=== PATIENT | female | born 2000 | race Caucasian/White ===

== ENCOUNTER 2021-06-30 17:56 | Emergency (ER) | payer OTHER, SELFPAY ==
[2021-06-30 18:52] LABS: Urine Blood Negative (Negative); Urine Glucose 2+ (Negative); Urine Protein Negative (Negative); Urine Specific Gravity >=1.030 (1.005-1.030)
[2021-06-30] MEDS ORDERED: NA CHLORIDE 0.9% 1,000 ML ONE (19:19)
[2021-06-30 19:28] LABS: Absolute Lymphocytes (CBC) 5.5 K/uL (0.7-4.9); Basophils % 0.8 % (0-1.3); Hematocrit 43.6 % (36.0-45.0); MPV 9.5 fL (7.6-11.3); RBC Red Blood Cell Count 4.76 M/uL (3.86-4.86)
--- NOTE | 2021-06-30 19:50 | RAD REPORT ---
EXAM DESCRIPTION: CTAbdomen Pelvis W Contrast - 06/30/2021 7:16 pm CLINICAL HISTORY: Abdominal pain. ABD PAIN COMPARISON: No comparisons TECHNIQUE: Biphasic CT imaging of the abdomen and pelvis was performed with 100 ml non-ionic IV cont rast. All CT scans are performed using dose optimization technique as appropriate and may include automated exposure control or mA/KV adjustment according to patient size. FINDINGS: The lung bases are clear. The liver, spleen, pancreas, adrenal glands and kidneys are within normal limits. No bowel obstruction, free air, free fluid or abscess. The appendix is normal. No evidence of signi ficant lymphadenopathy. No suspicious bony findings. IMPRESSION: No acute intra-abdominal or pelvic finding.
[2021-06-30 19:55] LABS: Urine Specific Gravity/Preg >1.030 (1.005-1.030)
[2021-06-30 20:22] LABS: Bilirubin Direct 0.2 mg/dL (0-0.2); Bilirubin Total 0.6 mg/dL (0.2-1.0); Protein, Total 7.7 g/dL (6.4-8.2)
[2021-06-30 20:24] LABS: Potassium 2.7 mmol/L (3.5-5.1)
--- NOTE | 2021-06-30 20:47 | RAD REPORT ---
EXAM DESCRIPTION: US - Pelvis Complete - 06/30/2021 8:29 pm CLINICAL HISTORY: right sided pain Pelvic pain. COMPARISON: PELVIC COMPLETE dated 07/25/2014 FINDINGS: The uterus is normal in size, shape and echotexture. The uterus measures 8.4 x 4.5 x 3.1 c m. The endometrial stripe measures 6 mm, normal. Both ovaries are normal in size, shape and echotexture. The right ovary measures 4.7 x 2.7 x 2.3 cm. The left ovary measures 3.4 x 2.6 x 2.2 cm. No ovarian or parovarian lesions. No adnexal masses. Normal Doppler blood flow was demonstrated to both ovaries. No significant pelvic ascites. IMPRESSION: Unremarkable study.
--- NOTE | 2021-06-30 21:44 | EDPHYS ---
Physician Documentation [facility] Name: Hui Briceno Age: 21 yrs Sex: Female : 2000 Arrival Date: 06/30/2021 Time: 17:58 Bed 14 Private MD: MARY ELLEN Physician Keith Infante HPI: 06/30 20:11 This 21 yrs old Female presents to ER via Ambulatory with complaints of jmm Abdominal Pain. 20:11 The patient presents with abdominal pain. Onset: The symptoms/episode began/occurred jmm today. The symptoms do not radiate. Associated signs and symptoms: Pertinent negatives: fever, vomiting. The symptoms are described as achy. Modifying factors: The symptoms are alleviated by remaining still, the symptoms are aggravated by movement. The patient has not experienced similar symptoms in the past. Historical: - PMHx: 18:17 Diabetes - IDDM; ll1 - PSHx: 18:17 None; ll1 - Immunization history:: Client reports having NOT received the Covid vaccine. - Social history:: Smoking status: Patient denies any tobacco usage or history of. ROS: 20:11 Constitutional: Negative for fever, chills, and weight loss, Cardiovascular: Negative jmm for chest pain, palpitations, and edema, Respiratory: Negative for shortness of breath, cough, wheezing, and pleuritic chest pain. 20:11 Abdomen/GI: Positive for abdominal pain. 20:11 All other systems are negative. Exam: 20:11 Constitutional: This is a well developed, well nourished patient who is awake, alert, jmm and in no acute distress. Head/Face: atraumatic. Eyes: EOMI, no conjunctival erythema appreciated ENT: Moist Mucus Membranes Neck: Trachea midline, Supple Chest/axilla: Normal chest wall appearance and motion. Cardiovascular: Regular rate and rhythm. No edema appreciated Respiratory: Normal respirations, no respiratory distress appreciated 20:11 Back: Normal ROM Skin: General appearance color normal MS/ Extremity: Moves all extremities, no obvious deformities appreciated, no edema noted to the lower extremities Neuro: Awake and alert, normal gait Psych: Behavior is normal, Mood is normal, Patient is cooperative and pleasant 20:11 Abdomen/GI: Inspection: abdomen appears normal, Bowel sounds: normal, Palpation: soft, mild abdominal tenderness, in the right lower quadrant. Vital Signs: 18:17 BP 124 / 94; Pulse 93; Resp 17; Temp 98.7; Pulse Ox 100% ; Weight 64.86 kg; Height 5 ll1 ft. 5 in. (165.10 cm); Pain 8/10; 20:00 BP 111 / 74; Pulse 73; Resp 16; Temp 97.2; Pulse Ox 100% ; Pain 4/10; dc2 21:00 BP 110 / 81; Pulse 62; Resp 18; Pulse Ox 100% ; Pain 4/10; dc2 21:45 BP 110 / 85; Pulse 79; Resp 16; Temp 98.0; Pulse Ox 99% ; Pain 2/10; dc2 18:17 Body Mass Index 23.80 (64.86 kg, 165.10 cm) ll1 MDM: 18:25 Patient medically screened. musa 21:42 Data reviewed: vital signs, nurses notes. Counseling: I had a detailed discussion with shanta the patient and/or guardian regarding: the historical points, exam findings, and any diagnostic results supporting the discharge/admit diagnosis, lab results, radiology results, the need for outpatient follow up, to return to the emergency department if symptoms worsen or persist or if there are any questions or concerns that arise at home. ED course: Is alert and nontoxic in appearance in the ED. Due to the ongoing pain in the right lower quadrant but a negative CT. Patient is given early appendicitis return precautions. Patient understood and agrees plan of care.. 06/30 18:42 Order name: Basic Metabolic Panel; Complete Time: 20:27 [facility] 06/30 18:42 Order name: CBC with Diff; Complete Time: 19:39 [facility] 06/30 18:42 Order name: Hepatic Function; Complete Time: 20:27 [facility] 06/30 18:42 Order name: Lipase; Complete Time: 20:27 [facility] 06/30 18:52 Order name: Urine Dipstick-Ancillary; Complete Time: 18:54 [facility] 06/30 18:56 Order name: Urine --Ancillary (enter results) tt3 06/30 18:42 Order name: IV Saline Lock; Complete Time: 18:47 [facility] 06/30 18:42 Order name: Labs collected and sent; Complete Time: 18:47 [facility] 06/30 18:42 Order name: CT Abd/Pelvis - IV Contrast Only; Complete Time: 19:54 [facility] 06/30 18:42 Order name: Urine Dipstick-Ancillary (obtain specimen); Complete Time: 18:59 jm 06/30 18:56 Order name: Urine --Ancillary; Complete Time: 19:57 [facility] 06/30 19:55 Order name: US Pelvis Complete; Complete Time: 20:50 jm Administered Medications: 18:59 Drug: NS 0.9% 1000 ml Route: IV; Rate: 1 bolus; Site: left antecubital; jw6 20:00 Follow up: IV Status: Completed infusion; IV Intake: 1000ml dc2 21:41 Drug: Potassium Effervescent Tablet 50 mEq Route: PO; dc2 21:47 Follow up: Response: Medication administered at discharge. dc2 Disposition: 07/01 10:43 Co-signature as Attending Physician, Keith Infante MD I agree with the assessment and [facility] plan of care. 10:43 I agree with the assessment and plan of care. [facility] Disposition Summary: 06/30/21 21:43 Discharge Ordered Location: Home [facility] Condition: Stable jmm Diagnosis - Lower abdominal pain, unspecified jmm Followup: jmm - With: Private Physician - When: 2 - 3 days - Reason: Recheck today's complaints, Continuance of care, Re-evaluation by your physician Discharge Instructions: - Discharge Summary Sheet jmm - Abdominal Pain, Adult jmm Forms: - Medication Reconciliation Form jmm - Thank You Letter jmm - Antibiotic Education jmm - Prescription Opioid Use jm Signatures: Dispatcher [employer] Keith Jacob MD MD cha Mickail, Joel, PA PA jmm Lewis, Lynsay RN RN 1 Ann Alas RN RN dc2 Becky Haile jw6
--- NOTE | 2021-06-30 21:44 | ER ---
Nurse's Notes [facility] Name: Hui Briceno Age: 21 yrs Sex: Female : 2000 Arrival Date: 06/30/2021 Time: 17:58 Bed 14 Private MD: Diagnosis: Lower abdominal pain, unspecified Presentation: 06/30 18:17 Chief complaint: Patient states: RLQ abd pain since 8 am. No fever or N/V/D. ll1 Coronavirus screen: Vaccine status: Patient reports being unvaccinated. Client denies travel out of the [place] in the last 14 days. At this time, the client does not indicate any symptoms associated with coronavirus-19. Ebola Screen: Patient denies travel to an Ebola-affected area in the 21 days before illness onset. Initial Sepsis Screen: Does the patient meet any 2 criteria? HR > 90 bpm. No. Patient's initial sepsis screen is negative. Does the patient have a suspected source of infection? Yes: Acute abdominal pain. Risk Assessment: Do you want to hurt yourself or someone else? Patient reports no desire to harm self or others. Onset of symptoms was June 30, 2021. 18:17 Method Of Arrival: Ambulatory ll1 18:17 Acuity: IZA 3 ll1 Triage Assessment: 18:18 General: Appears uncomfortable, Behavior is calm, cooperative, appropriate for age. iw Pain: Complains of pain in RLQ Pain began today Aggravated by increased activity. Neuro: No deficits noted. Cardiovascular: No deficits noted. Respiratory: No deficits noted. GI: Abdomen is flat, Reports lower abdominal pain. Historical: - PMHx: 18:17 Diabetes - IDDM; ll1 - PSHx: 18:17 None; ll1 - Immunization history:: Client reports having NOT received the Covid vaccine. - Social history:: Smoking status: Patient denies any tobacco usage or history of. Screenin:00 Abuse screen: Denies threats or abuse. Denies injuries from another. Nutritional dc2 screening: No deficits noted. Tuberculosis screening: No symptoms or risk factors identified. Never had TB. Fall Risk None identified. No fall in past 12 months (0 pts). No secondary diagnosis (0 pts). IV access (20 points). Ambulatory Aid- None/Bed Rest/Nurse Assist (0 pts). Gait- Normal/Bed Rest/Wheelchair (0 pts) Mental Status- Oriented to own ability (0 pts). Total Fam Fall Scale indicates No Risk (0-24 pts). Assessment: 20:05 General: Appears in no apparent distress. slender, well groomed, well developed, dc2 Behavior is calm, cooperative. Pain: Complains of pain in right lower quadrant. Neuro: Level of Consciousness is awake, alert, obeys commands, Oriented to person, place, time, Moves all extremities. Speech is normal, Facial symmetry appears normal. Respiratory: No deficits noted. Airway is patent Breath sounds are clear bilaterally. GI: Bowel sounds present X 4 quads. Abdomen is tender to palpation in right lower quadrant. : No deficits noted. No signs and/or symptoms were reported regarding the genitourinary system. Derm: No deficits noted. No signs and/or symptoms reported regarding the dermatologic system. Skin is intact, Skin is Skin is pink, warm \T\ dry. normal. Musculoskeletal: No deficits noted. No signs and/or symptoms reported regarding the musculoskeletal system. Vital Signs: 18:17 BP 124 / 94; Pulse 93; Resp 17; Temp 98.7; Pulse Ox 100% ; Weight 64.86 kg; Height 5 ll1 ft. 5 in. (165.10 cm); Pain 8/10; 20:00 BP 111 / 74; Pulse 73; Resp 16; Temp 97.2; Pulse Ox 100% ; Pain 4/10; dc2 21:00 BP 110 / 81; Pulse 62; Resp 18; Pulse Ox 100% ; Pain 4/10; dc2 21:45 BP 110 / 85; Pulse 79; Resp 16; Temp 98.0; Pulse Ox 99% ; Pain 2/10; dc2 18:17 Body Mass Index 23.80 (64.86 kg, 165.10 cm) ll1 ED Course: 17:58 Patient arrived in ED. as 18:17 Triage completed. ll1 18:18 Arm band placed on Patient placed in an exam room, on a stretcher. 1 18:19 Clarence Morgan PA is PHCP. shanta 18:19 Keith Infante MD is Attending Physician. shanta 18:43 Inserted saline lock: 22 gauge in left antecubital area, using aseptic technique. Blood iw collected. 18:45 Becky Haile is Primary Nurse. jw6 18:59 Urine --Ancillary (enter results) Sent. jw6 19:16 CT Abd/Pelvis - IV Contrast Only In Process Unspecified. EDMS 19:30 Patient has correct armband on for positive identification. Placed in gown. Bed in low dc2 position. Call light in reach. Side rails up X 1. telemetry monitor on. Pulse ox on. NIBP on. Door closed. Lights dimmed. 19:30 IV Flushed Converted IV to saline lock on left antecubital area dc2 20:05 US Pelvis Complete Sent. dc2 20:06 No provider procedures requiring assistance completed. dc2 20:10 Ultrasound at bedside. dc2 20:29 US Pelvis Complete In Process Unspecified. EDMS 21:49 IV discontinued, intact, bleeding controlled, No redness/swelling at site. Pressure dc2 dressing applied. Administered Medications: 18:59 Drug: NS 0.9% 1000 ml Route: IV; Rate: 1 bolus; Site: left antecubital; jw6 20:00 Follow up: IV Status: Completed infusion; IV Intake: 1000ml dc2 21:41 Drug: Potassium Effervescent Tablet 50 mEq Route: PO; dc2 21:47 Follow up: Response: Medication administered at discharge. dc2 Intake: 20:00 IV: 1000ml; Total: 1000ml. dc2 Outcome: 21:43 Discharge ordered by . [facility] 21:49 Discharged to home ambulatory. dc2 21:49 Condition: stable 21:49 Discharge instructions given to Instructed on discharge instructions, follow up and referral plans. Demonstrated understanding of instructions, follow-up care. 21:50 Patient left the ED. dc2 Signatures: Dispatcher [employer] EDMS Clarence Morgan PA PA jmm Martinez, Amelia as Eli Mccall RN RN Agnieszka Hampton RN RN 1 Evette, JAZZMINE Juarez RN dc2 Becky Haile jw6 Corrections: (The following items were deleted from the chart) 18:44 18:43 General: Appears uncomfortable, Behavior is calm, cooperative, appropriate for iw age, iw 18:44 18:43 Pain: Complains of pain in RLQ Pain began today Aggravated by increased activity, iw 18:44 18:43 Neuro: No deficits noted. iw 18:44 18:43 Cardiovascular: No deficits noted. iw iw 18:43 Respiratory: No deficits noted. iw iw 18:43 GI: Abdomen is flat, Reports lower abdominal pain, iw iw
[2021-06-30 22:05] VITALS: BP 110/85; TEMP 98; O2SAT 99
[2021-06-30] MEDS ORDERED: POTASSIUM 25 MEQ EFFERV TAB ONE (22:08)
== END 2021-06-30 21:50 | disposition home or self-care (01) ==
LOC: ER 17:56
DX: R10.30 Lower abdominal pain, unspecified (principal); E11.9 Type 2 diabetes mellitus without complications
CPT/HCPCS: 36415; 74177; 76856; 80048; 80076; 81003; 81025; 82565; 83690; 85025; 96360; 99284; J7030; Q9967